=== PATIENT | female | born 1975 | race Caucasian/White ===

== ENCOUNTER → 2017-05-22 16:49 | Outpatient (CLI) | payer OTHER ==
[2015-10-11 13:36] VITALS: BMI 42.7
[~2017-05-22 16:49] MED LIST: COUMADIN5 MG PO; GLUCOPHAGE500 MG PO; HYDROCHLOROTH12.5 M1 PO; METOPROLOL TART50 MG PO; NORVASC10 MG PO; PEPCID20 MG PO; VENTOLIN HFA18 GM INH; VIBRAMYCIN 100100 MG PO; ZESTRIL40 MG PO
== END | disposition home or self-care (01) ==
LOC: D.LABREF 16:49
DX: M17.11 Unilateral primary osteoarthritis, right knee (principal); Z11.8 Encounter for screening for other infectious and parasitic diseases

== ENCOUNTER 2017-06-07 07:22 | Emergency (ER) | payer OTHER | END 2017-06-07 09:36 | disposition home or self-care (01) | LOC: D.ER 07:22 | DX: R10.9 Unspecified abdominal pain (principal); L50.9 Urticaria, unspecified; R60.0 Localized edema; R31.9 Hematuria, unspecified; I10 Essential (primary) hypertension; Z86.718 Personal history of other venous thrombosis and embolism ==

== ENCOUNTER 2017-06-17 10:00 | Inpatient (IN) | payer OTHER ==
[~2017-06-17 10:00] MED LIST changes: +XARELTO20 MG PO
[2017-06-18] MEDS ORDERED: ZOFRAN4 MG PO (10:49)
[2017-06-18] MEDS ORDERED: ZOCOR5 MG PO (10:49)
[2017-06-18] MEDS ORDERED: OXYBUTYNIN CHLOR5 MG PO (10:50)
[2017-06-18] MEDS ORDERED: ZYRTEC10 MG PO (10:51)
[2017-06-18] MEDS ORDERED: GLUCOPHAGE1000 MG PO (10:52)
[2017-06-18] MEDS ORDERED: BUTALB-APAP-CA1 EACH PO (10:53)
[2017-06-18 11:54] LABS: BASOPHILS 0.2 % (0-2); EOSINOPHILS 2.5 % (0-7); HEMATOCRIT 38.8 % (36.0-48.0); IMMATURE GRANULOCYTES 0.7 % (0-5); MCH 30.1 pg (26.0-34.0); MCHC 33.5 g/dL (31.0-37.0); MCV 89.8 fL (80.0-100.0); MEAN PLATELET VOLUME 10.9 fL (7.4-10.4); MONOCYTES 5.8 % (2-11); NEUTROPHILS 60.8 % (40-80); PLATELET COUNT 248 10x3/uL (130-400); RBC 4.32 10x6/uL (4.00-5.40); RDW 13.3 % (11.5-14.5); WBC 14.9 10x3/uL (4.8-10.8)
[2017-06-18 12:09] LABS: APTT 25.6 SECONDS (22.8-39.4); INR 1.02 (0.85-1.17); PROTIME 13.2 SECONDS (11.6-15.0)
[2017-06-18 12:14] LABS: CALC OSMOLALITY 278 mosm/kg (275-300); CALCIUM 8.6 mg/dL (8.5-10.1); CARBON DIOXIDE 27.6 mmol/L (21.0-32.0); CHLORIDE - SERUM 98 mmol/L (98-107); CREATININE - SERUM 0.8 mg/dL (0.6-1.3); GLUCOSE 287 mg/dL (74-106); POTASSIUM - SERUM 4.4 mmol/L (3.5-5.1); SODIUM 134 mmol/L (136-145); UREA NITROGEN 14 mg/dL (7-18); eGFR NON AFRICAN AMERICAN 84 mL/min (90-120)
[2017-06-18 12:28] LABS: APPEARANCE HAZY (CLEAR); BILIRUBIN NEGATIVE (NEGATIVE); COLOR YELLOW (YELLOW); GLUCOSE 1000 mg/dL (NEGATIVE); KETONE NEGATIVE (NEGATIVE); NITRITE NEGATIVE (NEGATIVE); PROTEIN NEGATIVE (NEGATIVE); SPECIFIC GRAVITY 1.015 (1.005-1.020); UROBILINOGEN NORMAL (NORMAL)
[2017-06-23] MEDS ORDERED: ENTOCORT EC3 MG PO (05:36)
[2017-06-23 05:39] LABS: HCG URINE NEGATIVE (NEGATIVE)
[2017-06-23 05:50] VITALS: BP 109/73; BMI 43.8
[2017-06-23 09:50] VITALS: BP 99/58
[2017-06-23 10:14] VITALS: BP 94/65; BMI 43.6
--- NOTE | 2017-06-23 10:14 | NUR ---
RECIEVED TO ROOM 2208 FROMRECOVERY ROOM VIA BED WITH NO DISTRESS NOTED AWAKE AND ALERT ORINETED X 3 TRIPLE BLOCK TO RIGHT KNEE PT IS S/P RIGHT TOTAL KNEE ARTHROPLASTY. FRIEND AT BEDSIDE. PIV TO LEFT WRIST PATENT TO NS AT 100 SCD APPLIED TO LEFT LOWER LEG BSA X 4 QUADS ALL ADLS PER STAFF ASSIST VITAL SIGNS WNL DENIES PAIN AT THIS TIME.
--- NOTE | 2017-06-23 11:28 | OP ---
PATIENT NAME: SEBAS ONEAL MEDICAL RECORD: [id number] :[birth year] LOCATION:[id number] ADMISSION DATE:06/23/17 SURGEON: OLIVIA BULL MD DATE OF OPERATION: 06/23/2017 PREOPERATIVE DIAGNOSIS: Degenerative arthritis of the right knee. POSTOPERATIVE DIAGNOSIS: Degenerative arthritis of the right knee. PROCEDURE: Right total knee arthroplasty. SURGEON: Olivia Bull MD ANESTHESIA: General. INTRAOPERATIVE COMPLICATIONS: None. SUMMARY OF PATHOLOGIC FINDINGS: Extensive tricompartmental osteoarthritis of the knee, requiring total knee arthroplasty after all other conservative measurements had failed. OPERATIVE SUMMARY IN DETAIL: After obtaining the appropriate preoperative orthopedic surgery consents as well as anesthetic consultation, evaluation and clearance, the patient was brought to the operating room, placed on the operating table in supine position. After general laryngeal mask airway was administered, tourniquet was placed about the proximal aspect of the right lower extremity. Right lower extremity was then prepped and draped in a routine sterile fashion. The leg was elevated and exsanguinated, tourniquet inflated to 350 mmHg. Midline incision was taken down for a paramedian arthrotomy. Patella was everted. Soft tissue excision was done in the usual fashion. Distal femur was exposed. Intramedullary guide hole was created for intramedullary guided distal femur cuts. Distal femoral cut was made. This was then followed by complete exposure of the proximal tibia. Soft tissue excision was again made. The intramedullary guide hole was created again for intramedullary guided proximal tibial cutting. Proximal tibia cut was then followed by the appropriate measurements and chamfer cuts were made on the distal femur. Trials were put into place corresponding to the final components that is 4 distal femur, 13 polyethylene, 4 tibial baseplate. They were balanced and taken through a range of motion and found to be stable in all planes. Distal femoral and proximal tibial preparations were then followed by resection of the arthritic patellar surface and it was prepared for the patellar component itself. At this point, the knee was copiously irrigated, press fit Triathlon system was deployed. All components were put into place. Following this, the knee was taken through a range of motion and found to be stable in all planes. Wound was again irrigated. Following lavage irrigation, the paramedian arthrotomy was closed with #2 Ethibond followed by #1 Vicryl, 2-0 Vicryl and skin greg. Sterile dressings were applied. Tourniquet was deflated. The patient was awakened, taken to recovery room in stable condition. All final needle and sponge counts were correct. TRANSINT:[id number] Voice Confirmation ID: [id number] DOCUMENT ID: [id number] OPERATIVE REPORT [id number] SEBAS ONEAL MD, OLIVIA ROBISON at 1128 CC: [id number] DICTATION DATE: 06/23/17912 PRODUCTION ILLUSTRATOR: 06/23/17 1120 ADM IN [facility] [address] [id number]
--- NOTE | 2017-06-23 16:38 | NUR ---
PT RESTING WELL WITH NO DISTRESS NOTED VOICES ALL NEEDS CALL LIGHT INREACH SIDE RAILS UP X 2 STILL WITH LITTLE TACTILE STIMULATION TO RIGHT LEG AND FOOT
--- NOTE | 2017-06-23 19:00 | NUR ---
PT COMPLAINS OF ACHING PAIN TO RIGHT KNEE REQUESTED AND RECIEVED YEVGENIY PER ORDER
--- NOTE | 2017-06-23 19:11 | NUR ---
PT IS SITTING UP IN BED STATED THAT HER KNEE IS HURTING AND DAY NURSE JUST GAVE HER A PAIN PILL, PT IS ON CPM MACHINE, OFFERED A BAG OF ICE AND ADVISED PT IF NOT BETTER BY 9 WILL GIVE PT ANOTHER MEDICATION TO HELP. PT BED IS IN LOW POSITION, CALL LIGHT IN REACH NO OTHER NEEDS AT THIS TIME
[2017-06-23 22:27] VITALS: BP 106/63
[2017-06-24] VITALS: BP 134/63
--- NOTE | 2017-06-24 02:00 | NUR ---
PT IN BED WITH NO DISTRESS. RESPIRATIONS EVEN AND UNLABORED. SIDE RAILS X 2. BED IS LOW. CALL LIGHT IS WITHIN REACH.
[2017-06-24 04:00] VITALS: BP 128/72
[2017-06-24 06:07] LABS: HEMATOCRIT 38.9 % (36.0-48.0); HEMOGLOBIN 12.5 g/dL (12-16); MCH 29.6 pg (26.0-34.0); MCHC 32.1 g/dL (31.0-37.0); MCV 92.2 fL (80.0-100.0); MEAN PLATELET VOLUME 11.5 fL (7.4-10.4); RBC 4.22 10x6/uL (4.00-5.40); RDW 13.7 % (11.5-14.5); WBC 15.5 10x3/uL (4.8-10.8)
--- NOTE | 2017-06-24 07:30 | NUR ---
PT ASSESSMENT COMPLETE AROUSES TO VERBAL STIMULI COMPLAINS OF PAIN WILL TREAT PER ORDER
[2017-06-24 08:34] VITALS: BP 155/70
--- NOTE | 2017-06-24 11:00 | NUR ---
PT RESTING UP IN CHAIR AT BEDSIDE. NO DISTRESS NOTED PAIN CONTROLED AT THIS TIME
[2017-06-24 11:45] VITALS: BP 143/85
--- NOTE | 2017-06-24 15:00 | NUR ---
PT AMBULATING IN HALLWAY WITH PT.
[2017-06-24 16:07] VITALS: BP 140/65
--- NOTE | 2017-06-24 16:29 | NUR ---
Patient Name: SEBAS ONEAL Admission Status: Elective Accout number: [id number] Admission Date: 06-23-2017 : 1975 Admission Diagnosis: Attending: OLIVIA BULL Current LOS: 1 Anticipated DC Date: Planned Disposition: Home with Home Health Primary Insurance: [employer] Discharge Planning Comments: CM met with patient to assess discharge planning needs. Patient lives independently between her boyfriends house ([facility]) and her mother's house. Patient states that her boyfriend has 16 steps to the house and the mother has 10 steps. She stated that her discharge plan was to go to her boyfriends house but she was concerned about the stairs. She questioned a skilled facility, CM explained to her that PT and Dr Bull with discuss what is the safest place for her to be discharged home too. Patient picked [facility] with PT if she discharges home. Patient will need a walker, CM will set that up prior to discharge. CM will continue to follow and assist with discharge planning needs. PCP: Joe Montelongo [facility] Zonia Brennan (mother) [phone] Rex (Boyfriend) [phone] Broth Setter: Alexandra Richardson * Is the patient Alert and Oriented? Yes 0 * How many steps to enter\exit or inside your home? 16 0 * PCP Joe Montelongo 0 * Pharmacy [facility] on [address] 0 * Preadmission Environment Home with Family 0 * ADLs Independent 0 * Equipment None 0 * List name and contact numbers for known caregivers / representatives who currently or will assist patient after discharge: Zonia ( mother ) [phone] 0 * Community resources currently utilized None 0 * Additional services required to return to the preadmission environment? Yes 0 * Can the patient safely return to the preadmission environment? Yes 0 * Has this patient been hospitalized within the prior 30 days at any hospital? No 0 Grand Total: 0
--- NOTE | 2017-06-24 19:18 | NUR ---
PT IS SITTING IN BED WITH HOB AT 15 DEGREES, PT HAS RT LEG IN CPM, STATED A LITTLE BETTER TOLERANCE TODAY. PT EXPRESSED CONCERNS ABOUT NOT BEING READY TO GO HOME TOMORROW, ENCOURAGED PT TO TALK TO DOCTOR IN THE MORNING AND EXPRESS CONCERNS, NO OTHER NEEDS AT THIS TIME, CONTINUE WITH PLAN OF CARE
--- NOTE | 2017-06-24 19:31 | NUR ---
CPM IN PLCE NO DISTRES PRE MEDICATED WITH TORADOL PER REQUEST
[2017-06-24 20:00] VITALS: BP 139/72
[2017-06-25] VITALS: BP 142/64
--- NOTE | 2017-06-25 02:00 | NUR ---
PT IN BED WITH NO DISTRESS. RESPIRATIONS EVEN AND UNLABORED. SIDE RAILS X 2. BED LOW. CALL LIGHT IN REACH.
[2017-06-25 05:42] LABS: HEMATOCRIT 33.7 % (36.0-48.0); HEMOGLOBIN 11.2 g/dL (12-16); MCHC 33.2 g/dL (31.0-37.0); MCV 90.3 fL (80.0-100.0); MEAN PLATELET VOLUME 11.5 fL (7.4-10.4); RBC 3.73 10x6/uL (4.00-5.40); RDW 13.4 % (11.5-14.5); WBC 13.6 10x3/uL (4.8-10.8)
--- NOTE | 2017-06-25 07:12 | NUR ---
AWAKE AND ALERT AT THIS TIME. RESPIRATIONS EVEN AND NON LABORED. CPM AND SCD'S ON. BED ALARM ON AND IN WORKING ORDER. BED IN LOWEST POSITION WITH SRX2 AND WHEELS LOCKED. CALL LIGHT IN REACH, DENIES NEEDS AT THIS TIME. WILL CONTINUE WITH PLAN OF CARE.
[2017-06-25 07:53] VITALS: BP 121/69
--- NOTE | 2017-06-25 08:33 | NUR ---
SCHEDULED MEDICATIONS ADMINISTERED AT THIS TIME. DENIES NEEDS AT THIS TIME. CALL LIGHT IN REACH, WILL CONTINUE WITH PLAN OF CARE.
--- NOTE | 2017-06-25 10:32 | NUR ---
PRN PERCOCET ADMINISTERED AT THIS TIME FOR PAIN.
[2017-06-25 12:00] VITALS: BP 140/66
--- NOTE | 2017-06-25 14:00 | NUR ---
PRN NORCO ADMINISTERED AT THIS TIME FOR PAIN. MIRALAX ADMINISTERED FOR COMPLAINTS OF CONSTIPATION.
[2017-06-25 16:35] VITALS: BP 114/61
--- NOTE | 2017-06-25 19:45 | NUR ---
RECIEVED SHIFT REPORT. PT IS LYING IN BED. ALERT AND ORIENTED AND ABLE TO VERBALIZE NEEDS. IV IS PATENT AND SALINE LOC AT THIS TIME. CPM ON. SCD'S ON. PT IS AMBULATORY WITH ASSISTANCE. PT STATES PAIN IS 8/10. DRESSING TO RIGHT KNEE C/D/I. NO NEEDS ARE VERBALIZED AT THIS TIME. WILL CONTINUE TO MONITOR. SIDE RAILS ARE UP X 2. BED IS IN LOWEST POSITION. BED ALARM ON FOR SAFETY. CALL LIGHT IS WITHIN REACH.
[2017-06-25 20:00] VITALS: BP 151/72
--- NOTE | 2017-06-25 21:21 | NUR ---
SHIFT ASSESSMENT COMPLETED. NIGHT MEDS GIVEN WITH NO PROBLEMS. PT C/O PAIN 05/01. ADMINISTERED PRN TORADOL PER ORDER. DENIES FURTHER NEEDS. WILL MONITOR. SIDE RAILS X 2. BED LOW. BED ALARM ON. CALL LIGHT IN REACH.
[2017-06-26 04:00] VITALS: BP 115/78
--- NOTE | 2017-06-26 07:07 | NUR ---
AWAKE AND ALERT. CPM ON AND IN WORKING ORDER. CALL LIGHT IN REACH AND BED ALARM ON. WILL CONTINUE WITH PLAN OF CARE.
[2017-06-26 08:14] VITALS: BP 156/91
[2017-06-26] MEDS ORDERED: ELIQUIS2.5 MG PO (08:34)
--- NOTE | 2017-06-26 08:35 | NUR ---
SCHEDULED MEDICATIONS ADMINISTERED AT THIS TIME WELL PRN DULCOLAX SUPPOSITORY AND PERCOCET FOR PAIN. TAKEN WITHOUT DIFFICULTY. DENIES FURTHER NEEDS. BED ALARM ON AND CALL LIGHT IN REACH. WILL CONTINUE WITH PLAN OF CARE.
[2017-06-26] MEDS ORDERED: PERCOCET 10/3251 TA1 PO (08:37)
--- NOTE | 2017-06-26 10:58 | NUR ---
Patient being discharged home with [facility] with PT at home, referral sent. Spoke with Marisela. [facility] will deliver walker and CPM to hospital, spoke with Katelyn. Boyfriend will be the one to drive her home. CM will continue to follow and assist as needed.
--- NOTE | 2017-06-26 11:00 | NUR ---
HAD SMALL BM WITHOUT DIFFICULTY AT THIS TIME.
--- NOTE | 2017-06-26 15:28 | NUR ---
FLU SHOT ADMINISTERED TO LEFT DELTOID. INFORMATION SHEET PROVIDED TO PT.
--- NOTE | 2017-06-26 16:36 | NUR ---
[facility] called and stated that they do not take the patient's insurance. Referral sent to [facility] and they accept her insurance. Referral sent and they stated that would see the patient tomorrow. Went and spoke with patient and she stated that was OK for warren.
--- NOTE | 2017-06-26 17:59 | NUR ---
discharge paperwork reviewed with pt. denies questions or concerns. call light in reach, will continue with plan of care.
== END 2017-06-26 18:26 | disposition home health service (06) | DRG 470 ==
LOC: D.MS 06-23 05:07 → D.SDCHOLD 06-23 05:07 → D.MS 06-23 09:35 → D.SDCHOLD 06-23 10:00 → D.MS 06-26 18:26
PROVIDERS: ADMIT Orthopaedic Surgery
PROC: 0SRC0JA Replacement of Right Knee Joint with Synthetic Substitute, Uncemented, Open Approach (ICD-10-PCS; principal; 2017-06-23 07:30)
DX: M17.11 Unilateral primary osteoarthritis, right knee (principal); E11.9 Type 2 diabetes mellitus without complications; Z79.84 Long term (current) use of oral hypoglycemic drugs; Z86.718 Personal history of other venous thrombosis and embolism

== ENCOUNTER 2017-08-06 09:14 | Emergency (ER) | payer OTHER ==
[~2017-08-06 09:14] MED LIST changes: +BUTALB-APAP-CA1 EACH PO; +ELIQUIS2.5 MG PO; +ENTOCORT EC3 MG PO; +GLUCOPHAGE1000 MG PO; +OXYBUTYNIN CHLOR5 MG PO; +PERCOCET 10/3251 TA1 PO; +ZOCOR5 MG PO; +ZOFRAN4 MG PO; +ZYRTEC10 MG PO
[2017-08-06 10:04] LABS: BASOPHILS 0.2 % (0-2); EOSINOPHILS 3.9 % (0-7); HEMATOCRIT 39.2 % (36.0-48.0); HEMOGLOBIN 13.2 g/dL (12-16); IMMATURE GRANULOCYTES 0.4 % (0-5); LYMPHOCYTES 29.8 % (15-50); MCH 29.3 pg (26.0-34.0); MCHC 33.7 g/dL (31.0-37.0); MCV 87.1 fL (80.0-100.0); MEAN PLATELET VOLUME 10.9 fL (7.4-10.4); MONOCYTES 6.4 % (2-11); NEUTROPHILS 59.3 % (40-80); RDW 13.4 % (11.5-14.5)
[2017-08-06 10:17] LABS: PLATELET COUNT 241 10x3/uL (130-400)
[2017-08-06 10:35] LABS: ALBUMIN 3.2 g/dL (3.4-5.0); ALKALINE PHOSPHATASE 130 U/L (46-116); ALT (SGPT) 23 U/L (10-68); CALC OSMOLALITY 280 mosm/kg (275-300); CALCIUM 8.7 mg/dL (8.5-10.1); CARBON DIOXIDE 25.5 mmol/L (21.0-32.0); CHLORIDE - SERUM 100 mmol/L (98-107); CREATININE - SERUM 0.8 mg/dL (0.6-1.3); MAGNESIUM - SERUM 1.8 mg/dL (1.8-2.4); POTASSIUM - SERUM 3.4 mmol/L (3.5-5.1); PROTEIN - SERUM 7.6 g/dL (6.4-8.2); SODIUM 138 mmol/L (136-145); UREA NITROGEN 11 mg/dL (7-18); eGFR NON AFRICAN AMERICAN 84 mL/min (90-120)
[2017-08-06 10:36] LABS: GLUCOSE 202 mg/dL (74-106)
== END 2017-08-06 11:37 | disposition home or self-care (01) ==
LOC: D.ER 09:14
PROVIDERS: Emergency Medicine
DX: J20.9 Acute bronchitis, unspecified (principal); E11.9 Type 2 diabetes mellitus without complications; K21.9 Gastro-esophageal reflux disease without esophagitis; I10 Essential (primary) hypertension

== ENCOUNTER 2018-03-20 15:41 | Emergency (ER) | payer OTHER ==
[~2018-03-20] VITALS: Ht 167.6 cm; Wt 118.2 kg
[2018-03-20 16:08] VITALS: Ht 167.6 cm; Wt 118.2 kg
[2018-03-20] MEDS ORDERED: XARELTO15 MG PO (16:11)
[2018-03-20] MEDS ORDERED: AMOXICILLIN500 M1 PO (19:00)
[2018-03-20] MEDS ORDERED: TYLENOL W/CODEI1 TAB PO (19:00)
[2018-03-21 02:44] VITALS: BP 134/86
== END 2018-03-20 19:38 | disposition home or self-care (01) ==
LOC: D.ER 15:41
DX: K04.7 Periapical abscess without sinus (principal); K08.89 Other specified disorders of teeth and supporting structures

== ENCOUNTER 2018-06-27 16:58 | Emergency (ER) | payer MEDICAID ==
[~2018-06-27] VITALS: Ht 167.6 cm; Wt 114.1 kg
[~2018-06-27 16:58] MED LIST changes: +AMOXICILLIN500 M1 PO; +TYLENOL W/CODEI1 TAB PO; +XARELTO15 MG PO
[2018-06-27 17:14] VITALS: Ht 167.6 cm; Wt 114.1 kg
[2018-06-27 17:51] LABS: BASOPHILS 0.1 % (0-2); EOSINOPHILS 1.5 % (0-7); HEMATOCRIT 42.3 % (36.0-48.0); HEMOGLOBIN 14.8 g/dL (12-16); IMMATURE GRANULOCYTES 0.3 % (0-5); LYMPHOCYTES 8.1 % (15-50); MCH 29.8 pg (26.0-34.0); MCV 85.1 fL (80.0-100.0); MEAN PLATELET VOLUME 11.3 fL (7.4-10.4); MONOCYTES 3.5 % (2-11); NEUTROPHILS 86.5 % (40-80); PLATELET COUNT 220 10x3/uL (130-400); RBC 4.97 10x6/uL (4.00-5.40); RDW 13.6 % (11.5-14.5); WBC 15.7 10x3/uL (4.8-10.8)
[2018-06-27 18:02] LABS: APPEARANCE CLEAR (CLEAR); BILIRUBIN NEGATIVE (NEGATIVE); COLOR YELLOW (YELLOW); GLUCOSE NEGATIVE (NEGATIVE); KETONE SMALL mg/dL (NEGATIVE); NITRITE NEGATIVE (NEGATIVE); PROTEIN TRACE mg/dL (NEGATIVE); SPECIFIC GRAVITY 1.015 (1.005-1.020); UROBILINOGEN NORMAL (NORMAL)
[2018-06-27 18:03] LABS: RED CELLS - URINE 0-5 /hpf (0-5); WHITE CELLS - URINE 0-5 /hpf (0-5)
[2018-06-27 18:05] LABS: BACTERIA MODERATE /hpf (NONE SEEN)
[2018-06-27 18:14] LABS: ALBUMIN 3.5 g/dL (3.4-5.0); ALKALINE PHOSPHATASE 93 U/L (46-116); ALT (SGPT) 33 U/L (10-68); AMYLASE - SERUM 55 U/L (25-115); BILIRUBIN - TOTAL 0.47 mg/dL (0.2-1.3); CALC OSMOLALITY 279 mosm/kg (275-300); CALCIUM 8.8 mg/dL (8.5-10.1); CARBON DIOXIDE 26.8 mmol/L (21.0-32.0); CHLORIDE - SERUM 101 mmol/L (98-107); CREATININE - SERUM 0.8 mg/dL (0.6-1.3); GLUCOSE 185 mg/dL (74-106); LIPASE 99 U/L (73-393); POTASSIUM - SERUM 3.6 mmol/L (3.5-5.1); PROTEIN - SERUM 7.8 g/dL (6.4-8.2); SODIUM 138 mmol/L (136-145); UREA NITROGEN 11 mg/dL (7-18); eGFR NON AFRICAN AMERICAN 84 mL/min (90-120)
[2018-06-27 20:16] LABS: ERYTHROCYTE SEDIMENTATION RATE 20 mm/hr (0-20)
[2018-06-27 20:23] LABS: HCG SERUM NEGATIVE (NEGATIVE)
[2018-06-27] MEDS ORDERED: ZOFRAN ODT4 MG/UDTAB PO (22:15)
[2018-06-27 23:58] VITALS: BP 138/71
== END 2018-06-27 23:58 | disposition home or self-care (01) ==
LOC: D.ER 16:58
PROVIDERS: Emergency Medicine
DX: R11.2 Nausea with vomiting, unspecified (principal); R19.7 Diarrhea, unspecified; R51 Headache; E11.9 Type 2 diabetes mellitus without complications; I10 Essential (primary) hypertension